=== PATIENT | male | born 1980 | race Caucasian/White ===

== ENCOUNTER → 2016-06-17 | Outpatient (CLI) | payer BC | LOC: LAB 17:41 | PROVIDERS: ATTEND Family Medicine | DX: R68.82 Decreased libido (principal) | CPT/HCPCS: 36415; 84403 ==

== ENCOUNTER → 2019-03-12 | Outpatient (CLI) | payer BC ==
[2019-03-12 14:58] LABS: SEMEN VOLUME 0.8 ML (1.5-5.0)
== END ==
LOC: LAB 11:29
PROVIDERS: ATTEND Urology
DX: N46.9 Male infertility, unspecified (principal)
CPT/HCPCS: 89320

== ENCOUNTER → 2019-03-19 | Outpatient (CLI) | payer BC ==
--- NOTE | 2019-03-19 17:02 | Diagnostic Imaging Report ---
PROCEDURE: US Scrotum. TECHNIQUE: Multiple real-time grayscale images were obtained over the scrotum in various projections bilaterally. INDICATION: Dysmorphic sperm, varicocele. FINDINGS: There is no evidence for varicocele. Testicular parenchyma appears normal bilaterally. The epididymides are normal. Color Doppler blood flow normal. No hernia, mass, or fluid collection. IMPRESSION: Normal scrotal Doppler and ultrasound exam. Dictated by: Dictated on workstation # [id number]
== END ==
LOC: RAD 14:35
PROVIDERS: ATTEND Urology
DX: I86.1 Scrotal varices (principal)
CPT/HCPCS: 76870

== ENCOUNTER → 2020-07-31 | Outpatient (CLI) | payer BC ==
[~2020-07-31] MED LIST: GADOBUTROL 10 MMOL/10 ML (GADAVIST) VIAL IV ONE
--- NOTE | 2020-07-31 11:00 | Diagnostic Imaging Report ---
PROCEDURE: MR imaging of the brain with and without contrast. TECHNIQUE: Multiplanar, multisequence MR imaging of the brain was performed with and without contrast. INDICATION: Worsening headaches. COMPARISON: None. FINDINGS: Benign developmental venous anomaly in the left parietal occipital lobe. No suspicious intracranial enhancement. No abnormal intracranial signal. No restricted water diffusion. No hemosiderin deposition or evidence of intracranial hemorrhage. Normal morphology including the major midline structures, sella, posterior fossa and cerebellar pontine angle. No hydrocephalus or extra-axial fluid collections. Normal intracranial flow voids. The orbits are negative on this nondedicated exam. Paranasal sinuses and mastoids are clear. Normal bone marrow signal. IMPRESSION: Incidental developmental venous anomaly in the left parietal occipital lobe. MRI of the brain is otherwise negative. No acute findings. Dictated by: Dictated on workstation # [id number]
== END ==
LOC: RAD 07-28 09:16
PROVIDERS: ATTEND Nurse Practitioner Family
DX: R51.9 Headache, unspecified (principal)
CPT/HCPCS: 70553